=== PATIENT | male | born 1995 | race Caucasian/White ===

== ENCOUNTER 2018-03-19 23:43 | Emergency (ER) | payer SELFPAY ==
[2018-03-20] MEDS ORDERED: IBUPROFEN 800 MG TABLET PO ONE (01:04)
[2018-03-20] MEDS ORDERED: PENICILLIN V POTASSIUM 500 MG TABLET PO ONE (01:04)
--- NOTE | 2018-03-20 01:07 | ER Document Report ---
HPI - HPI Patient complains to provider of: toothache Time Seen by Provider: 03/20/18 00:54 Pain Level: 4 Context: Patient is a 22-year-old male presents to the emergency department with 3 days of bottom left tooth pain. Patient states he noticed that he fractured the tooth about 2 months ago stated initially had no pain. States the last 3 days he has been in pain which is why he comes to the emergency room. Patient is unable to tell me the last time he saw a dentist. Patient denies fever, swelling or erythema around the gumline. Past medical history: None Medications: None Allergies: Kiwis Past Medical History - General Information source: Patient - Social History Smoking Status: Current Some Day Smoker Chew tobacco use (# tins/day): No Frequency of alcohol use: None Drug Abuse: None Family History: Reviewed & Not Pertinent Patient has suicidal ideation: No Patient has homicidal ideation: No - Past Medical History Cardiac Medical History: Denies: Hx Heart Attack, Hx Hypertension Pulmonary Medical History: Denies: Hx Asthma Neurological Medical History: Denies: Hx Cerebrovascular Accident, Hx Seizures Renal/ Medical History: Denies: Hx Peritoneal Dialysis GI Medical History: Denies: Hx Hepatitis, Hx Hiatal Hernia, Hx Ulcer Infectious Medical History: Denies: Hx Hepatitis Past Surgical History: Denies: Hx Open Heart Surgery, Hx Pacemaker Vertical Provider Document - CONSTITUTIONAL Agree With Documented VS: Yes Notes: GENERAL: Alert, interacts well. No acute distress. HEAD: Normocephalic, atraumatic. EYES: Pupils equal, round, and reactive to light. Extraocular movements intact. ENT: Oral mucosa moist, tongue midline. Dentition appears to be relatively good shape. The tooth in question is #19. It is noted to be fractured down the middle. No obvious dental caries noted. Gums are mildly erythematous, with no fluctuance or indurated areas noted no Benjamin's angina. NECK: Full range of motion. Supple. Trachea midline. LUNGS: Clear to auscultation bilaterally, no wheezes, rales, or rhonchi. No respiratory distress. HEART: Regular rate and rhythm. No murmur ABDOMEN: Soft, non-tender. Non-distended. Bowel sounds present in all 4 quadrants. EXTREMITIES: Moves all 4 extremities spontaneously. No edema, normal radial and dorsalis pedis pulses bilaterally. No cyanosis. BACK: no cervical, thoracic, lumbar midline tenderness. No saddle anesthesia, normal distal neurovascular exam. NEUROLOGICAL: Alert and oriented x3. Normal speech. cranial nerves II through XII grossly intact PSYCH: Normal affect, normal mood. SKIN: Warm, dry, normal turgor. No rashes or lesions noted. - INFECTION CONTROL TRAVEL OUTSIDE OF THE [place] IN LAST 30 DAYS: No Course - Re-evaluation Re-evalutation: 03/20/18 01:06 Discussed with patient need to take [id number] Tylenol and Motrin and antibiotic use. Discussed need to follow-up with [facility]. Patient is afebrile and not tachycardic at this time. Stable for discharge. - Vital Signs Vital signs: Temp Pulse Resp BP Pulse Ox 97.8 F 77 16 127/59 H 97 03/19/18 23:45 03/19/18 23:45 03/19/18 23:45 03/19/18 23:45 03/19/18 23:45 Discharge - Discharge Clinical Impression: Toothache Tooth fracture Qualifiers: Encounter type: initial encounter Fracture type: closed Qualified Code(s): S02.5XXA - Fracture of tooth (traumatic), initial encounter for closed fracture Condition: Stable Disposition: HOME, SELF-CARE Instructions: [facility], Penicillin V K ([facility]), Toothache ([facility]) Prescriptions: Penicillin V Potassium [Penicillin Vk 500 mg Tablet] 500 mg PO BID #20 tablet
[2018-03-20 01:34] VITALS: BP 124/68
== END 2018-03-20 01:34 | disposition home or self-care (01) ==
LOC: ER 23:43
DX: S02.5XXA Fracture of tooth (traumatic), initial encounter for closed fracture (principal); K08.89 Other specified disorders of teeth and supporting structures; X58.XXXA Exposure to other specified factors, initial encounter; F17.200 Nicotine dependence, unspecified, uncomplicated; Z91.018 Allergy to other foods
CPT/HCPCS: 99282

== ENCOUNTER 2018-08-26 15:09 | Emergency (ER) | payer OTHER ==
[2018-08-26] MEDS ORDERED: IBUPROFEN 800 MG TABLET PO ONE (16:02)
--- NOTE | 2018-08-26 16:08 | ER Document Report ---
HPI - HPI Patient complains to provider of: Right elbow pain Time Seen by Provider: 08/26/18 15:54 Onset: Last week Onset/Duration: Persistent Quality of pain: Achy Severity: Severe Pain Level: 4 Context: Patient presents emergency department with complaints of right elbow pain for the past few weeks. 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 Patient is right- handed. He denies trauma. Denies any other symptoms such as fever vomiting diarrhea. Denies past medical history to the elbow. Did buy a brace from [employer] but it did not help. He has not taken any pain medication since last week. Associated Symptoms: None Exacerbated by: Movement Relieved by: Denies Similar symptoms previously: No Recently seen / treated by doctor: No Past Medical History - General Information source: Patient - Social History Smoking Status: Unknown if Ever Smoked Frequency of alcohol use: None Drug Abuse: None Occupation: furniture mover helper Lives with: Family Family History: Reviewed & Not Pertinent Patient has suicidal ideation: No Patient has homicidal ideation: No - Medical History Medical History: Negative - Past Medical History Cardiac Medical History: Denies: Hx Heart Attack, Hx Hypertension Pulmonary Medical History: Denies: Hx Asthma Neurological Medical History: Denies: Hx Cerebrovascular Accident, Hx Seizures Renal/ Medical History: Denies: Hx Peritoneal Dialysis GI Medical History: Denies: Hx Hepatitis, Hx Hiatal Hernia, Hx Ulcer Infectious Medical History: Denies: Hx Hepatitis Surgical Hx: Negative Past Surgical History: Denies: Hx Open Heart Surgery, Hx Pacemaker Vertical Provider Document - CONSTITUTIONAL Agree With Documented VS: Yes Exam Limitations: No Limitations General Appearance: WD/WN, No Apparent Distress - INFECTION CONTROL TRAVEL OUTSIDE OF THE [place] IN LAST 30 DAYS: No - HEENT HEENT: Atraumatic, Normocephalic - NECK Neck: Supple - RESPIRATORY Respiratory: No Respiratory Distress - CARDIOVASCULAR Cardiovascular: Regular Rate - MUSCULOSKELETAL/EXTREMETIES Musculoskeletal/Extremeties: MAEW, FROM, Tender - Medial side right elbow tender to palpation no erythema no swelling no warmth full range of motion good radial pulse good cap refill no obvious deformity - NEURO Level of Consciousness: Awake, Alert, Appropriate Motor/Sensory: No Motor Deficit - DERM Integumentary: Warm, Dry Adult Front & Back Diagram: 1 - reports pain with movement Course - Re-evaluation Re-evalutation: 08/26/18 16:12 Patient instructed on brace as treatment also given a pitcher. Patient instructed on ibuprofen. Patient moves furniture for a living was instructed to rest as much as possible. He verbalized understanding. Instructed to follow-up with primary care provider for recheck within 1 week. Dictation of this chart was performed using voice recognition software; therefore, there may be some unintended grammatical errors. 08/26/18 16:38 Elbow x-ray negative for acute fracture. Patient was again instructed on epicondylitis treatment he verbalized understanding to all instructions discharged home - Vital Signs Vital signs: Temp Pulse Resp BP Pulse Ox 98.6 F 76 16 109/50 L 98 08/26/18 15:30 08/26/18 15:30 08/26/18 15:30 08/26/18 15:30 08/26/18 15:30 - Diagnostic Test Radiology reviewed: Image reviewed, Reports reviewed - EXAM DESCRIPTION: ELBOW RIGHT OVER 2 VIEWS COMPLETED DATE/TIME: 08/26/2018 4:18 pm REASON FOR STUDY: PAIN WITH MOVEMENT COMPARISON: None. NUMBER OF VIEWS: Four views. T ECHNIQUE: AP, lateral, and both oblique radiographic images acquired of the right elbow. LIMITATIONS: None. FINDINGS: MINERALIZATION: Normal. BONES: No acute fracture or dislocation. No worrisome bone lesions. JOINT: No effusion. SOFT TISSUES: No soft tissue swelling. No foreign body. OTHER: No other significant finding. IMPRESSION: NEGATIVE STUDY OF THE RIGHT ELBOW. NO RADIOGRAPHIC EVIDENCE OF ACUTE INJURY. Discharge - Discharge Clinical Impression: Epicondylitis elbow, medial Qualifiers: Laterality: right Qualified Code(s): M77.01 - Medial epicondylitis, right elbow Condition: Stable Disposition: HOME, SELF-CARE Instructions: Use of [id number] Ibuprofen ([facility]), Medial Epicondylitis ([facility]) Additional Instructions: *You have been evaluated for elbow pain, epicondylitis *Apply brace as instructed *Motrin as indicated *Rest *Follow-up with your primary care provider within 1 week for recheck. *Return to ED for worsening condition, changes, needs Forms: Return to Work
--- NOTE | 2018-08-26 16:30 | RADIOLOGY REPORT (SQ) ---
EXAM DESCRIPTION: ELBOW RIGHT OVER 2 VIEWS COMPLETED DATE/TIME: 08/26/2018 4:18 pm REASON FOR STUDY: PAIN WITH MOVEMENT COMPARISON: None. NUMBER OF VIEWS: Four views. TECHNIQUE: AP, lateral, and both oblique radiographic images acquired of the right elbow. LIMITATIONS: None. FINDINGS: MINERALIZATION: Normal. BONES: No acute fracture or dislocation. No worrisome bone lesions. JOINT: No effusion. SOFT TISSUES: No soft tissue swelling. No foreign body. OTHER: No other significant finding. IMPRESSION: NEGATIVE STUDY OF THE RIGHT ELBOW. NO RADIOGRAPHIC EVIDENCE OF ACUTE INJURY. TECHNICAL DOCUMENTATION: JOB ID: [id number] [employer]- All Rights Reserved Reading location - IP/workstation name: [email or web address]
[2018-08-26 17:15] VITALS: BP 103/58
== END 2018-08-26 17:11 | disposition home or self-care (01) ==
LOC: ER 15:09
DX: M77.01 Medial epicondylitis, right elbow (principal); X50.0XXA Overexertion from strenuous movement or load, initial encounter; Y99.0 Civilian activity done for income or pay
CPT/HCPCS: 99283